=== PATIENT | male | born 1975 | race Caucasian/White ===

== ENCOUNTER 2017-03-19 12:29 | Outpatient (RCR) | payer BC | END 2017-03-26 12:54 | disposition home or self-care (01) | LOC: COL.CR 12:29 | DX: Z48.812 Encounter for surgical aftercare following surgery on the circulatory system (principal); Z95.5 Presence of coronary angioplasty implant and graft ==

== ENCOUNTER 2018-04-09 20:59 | Emergency (ER) | payer BC ==
[~2018-04-09] VITALS: Ht 175.3 cm; Wt 94.5 kg
[2018-04-09] MEDS ORDERED: ASPIRIN 32325 MG/TAB PO (21:15)
[2018-04-09] MEDS ORDERED: COZAAR 50MG50 MG/TAB PO (21:16)
[2018-04-09] MEDS ORDERED: CRESTOR 10MG10 MG PO (21:16)
[2018-04-09] MEDS ORDERED: PLAVIX 75MG TAB75 MG PO (21:17)
[2018-04-09] MEDS ORDERED: TOPROL XL 50MG50 MG PO (21:17)
[2018-04-09 21:30] LABS: BASO % 0.4 % (0.0-2.0); EOS % 0.7 % (0-4.0); GRAN % 68.1 % (42.2-75.2); HEMATOCRIT 41.4 % (42.0-52.0); LYMPH # 0.7 (1.2-3.4); LYMPH % 16.3 % (20.0-51.0); MEAN CELL VOLUME 96 fl (80.0-100.0); MEAN CORPUSCULAR HEMOGLOBIN 30 pg (27.0-31.0); MEAN CORPUSCULAR HGB CONC 31 g/dl (33.0-37.0); MEAN PLATELET VOLUME 10.9 fl (7.4-10.4); MONO # 0.6 (0.1-0.6); MONO % 14.1 % (1.7-9.3); PLATELET COUNT 146 K/mm3 (130-400); RED BLOOD COUNT 4.32 M/mm3 (4.20-5.60); REDCELL DISTRIBUTION WIDTH-CV 14.6 % (11.5-14.5)
[2018-04-09 21:43] LABS: ALANINE AMINOTRANSFERASE 36 U/L (21-72); ALBUMIN 3.9 gm/dL (3.5-5.0); ALKALINE PHOSPHATASE 98 U/L (50-136); ANION GAP 8 mmol/L (7-16); AST,SGOT 32 U/L (15-37); BILIRUBIN,TOTAL 0.2 mg/dL (0.0-1.0); BLOOD UREA NITROGEN 13 mg/dL (9-20); CALCIUM 8.5 mg/dL (8.4-10.2); CARBON DIOXIDE 28 mmol/L (22-30); CHLORIDE 104 mmol/L (98-107); GLUCOSE 99 mg/dL (74-106); POTASSIUM 3.5 mmol/L (3.4-5.0); SODIUM 140 mmol/L (137-145); TOTAL PROTEIN 7.3 gm/dL (6.4-8.2)
[2018-04-09 22:43] LABS: TROPONIN-I < 0.012 ng/mL (0.000-0.034)
[2018-04-09 23:05] LABS: COLLECTION METHOD CLEAN CATCH
[2018-04-09 23:12] LABS: MUCOUS Present /lpf; PH 5 (5-8); SQUAMOUS EPITHELIAL 0-2 /hpf; URINE APPEARANCE Clear; URINE BACTERIA None Seen /hpf; URINE BILIRUBIN Negative (NEGATIVE); URINE BLOOD Negative (NEGATIVE); URINE COLOR Yellow; URINE GLUCOSE Negative (NEGATIVE); URINE KETONE Trace (NEGATIVE); URINE LEUKOCYTE ESTERASE Negative (NEGATIVE); URINE NITRATE Negative (NEGATIVE); URINE PROTEIN(semi-quant) 1+ (NEGATIVE); URINE RBC 0-2 /hpf; URINE UROBILINOGEN Negative (NEGATIVE)
[2018-04-09] MEDS ORDERED: TAMIFLU 75MG75 MG PO (23:34)
[2018-04-09] MEDS ORDERED: TUSS PO (23:34)
[2018-04-10 00:07] VITALS: BP 122/74; PULSE 89; TEMP 98.2
== END 2018-04-10 00:32 | disposition home or self-care (01) ==
LOC: COL.ER 20:59
PROVIDERS: Emergency Medicine
DX: J10.1 Influenza due to other identified influenza virus with other respiratory manifestations (principal); Z79.82 Long term (current) use of aspirin; Z79.02 Long term (current) use of antithrombotics/antiplatelets
CPT/HCPCS: J1885; J7030

== ENCOUNTER → 2020-07-04 | Outpatient (CLI) | payer MEDICARE, OTHER, MEDICAID ==
[~2020-07-04] MED LIST: ASPIRIN 32325 MG/TAB PO; COZAAR 50MG50 MG/TAB PO; CRESTOR 10MG10 MG PO; PLAVIX 75MG TAB75 MG PO; TAMIFLU 75MG75 MG PO; TOPROL XL 50MG50 MG PO; TUSS PO
== END ==
LOC: COL.RAD 09:34
DX: R90.82 White matter disease, unspecified (principal); M79.609 Pain in unspecified limb; R20.2 Paresthesia of skin

== ENCOUNTER → 2021-01-03 | Outpatient (CLI) | payer MEDICARE, MEDICAID | LOC: COL.RAD 10:36 | DX: G80.9 Cerebral palsy, unspecified (principal); G62.9 Polyneuropathy, unspecified ==

== ENCOUNTER → 2023-05-13 | Outpatient (CLI) | payer MEDICARE, MEDICAID ==
[~2023-05-13] MED LIST changes: +MEDROL 4MG DOSPA4 MG PO; +NORCO 325 MG-51 TAB PO
== END ==
LOC: MHCPAIN 10:55
DX: M99.14 Subluxation complex (vertebral) of sacral region (principal); M53.3 Sacrococcygeal disorders, not elsewhere classified; M47.896 Other spondylosis, lumbar region; G80.9 Cerebral palsy, unspecified
CPT/HCPCS: G0463

== ENCOUNTER → 2023-05-15 | Outpatient (CLI) | payer MEDICARE, MEDICAID ==
[~2023-05-15] MED LIST changes: +Iohexol 300 - 10 ML VIAL ONE
== END ==
LOC: MHCPAIN 08:24
DX: M47.898 Other spondylosis, sacral and sacrococcygeal region (principal); M53.3 Sacrococcygeal disorders, not elsewhere classified
CPT/HCPCS: J0665; J1040; Q9967

== ENCOUNTER → 2023-11-18 | Outpatient (CLI) | payer MEDICARE, MEDICAID ==
[~2023-11-18] MED LIST changes: -Iohexol 300 - 10 ML VIAL ONE
== END ==
LOC: MHCPAIN 11:15
DX: M47.817 Spondylosis without myelopathy or radiculopathy, lumbosacral region (principal); M54.50 Low back pain, unspecified; M53.3 Sacrococcygeal disorders, not elsewhere classified; M99.14 Subluxation complex (vertebral) of sacral region; I25.10 Atherosclerotic heart disease of native coronary artery without angina pectoris; G80.9 Cerebral palsy, unspecified; I10 Essential (primary) hypertension; M79.2 Neuralgia and neuritis, unspecified
CPT/HCPCS: G0463